=== PATIENT | female | born 1990 | race Caucasian/White ===

== ENCOUNTER 2022-01-01 13:08 | Emergency (ER) | payer BC ==
[2022-01-01 13:37] VITALS: BMI 29.7
[2022-01-01] MEDS ORDERED: IBUPROFEN 400 MG TABLET (FP) PO ONE ×2 (14:20→14:28)
[2022-01-01] MEDS ORDERED: ACETAMINOPHEN 325 MG TABLET (FP) PO ONE (14:20)
[2022-01-01] MEDS ORDERED: ACETAMINOPHEN 325 MG TABLET (FP) ONE (14:28)
[2022-01-01 16:33] VITALS: BP 106/66; PULSE 61; RESP 18; TEMP 98.1
== END 2022-01-01 16:34 ==
LOC: JER 13:08
DX: R07.9 Chest pain, unspecified (principal)
CPT/HCPCS: 71046-TC-FY; 93005; 93010; 99284-25